=== PATIENT | male | born 1950 | race Caucasian/White ===

== ENCOUNTER → 2017-05-12 | Day surgery (SDC) | payer OTHER ==
[2017-05-11 09:45] LABS: BASOPHILS % 0.3 % (0.0-1.0); EOSINOPHILS # (AUTO) 0.1 (0.0-0.4); EOSINOPHILS % 0.8 % (0.0-6.0); HEMATOCRIT 41.1 % (38.2-49.6); HEMOGLOBIN 13.9 g/dL (14.0-18.0); LYMPHOCYTES # (AUTO) 2.2 (1.0-3.2); MEAN CORPUSCULAR HEMOGLOBIN 32.8 pg (28-32); MEAN CORPUSCULAR HGB CONC 33.8 g/dL (31-35); MEAN CORPUSCULAR VOLUME 96.9 fL (81-99); MONOCYTES # (AUTO) 0.8 (0.2-0.8); MONOCYTES % 8.2 % (4.4-11.3); NEUTROPHILS # (AUTO) 6.8 (2.1-6.9); NEUTROPHILS % 68.3 % (38.7-80.0); PLATELET COUNT 223 x10e3/uL (140-360); RED BLOOD COUNT 4.24 x10e6/uL (4.3-5.7); RED CELL DISTRIBUTION WIDTH 13.1 % (11.7-14.4)
--- NOTE | 2017-05-11 09:56 | Diagnostic Imaging Report ---
PROCEDURE: Frontal and lateral views of the chest. COMPARISON: None. INDICATIONS: PREOPERATIVE CHEST XRAY FOR KNEE SURGERY FINDINGS: Lines/tubes: None. Lungs: The lungs are well inflated and clear. There is no evidence of pneumonia or pulmonary edema. Pleura: There is no pleural effusion or pneumothorax. Heart and mediastinum: The heart and the mediastinum are normal. Bones: No acute bony abnormality. Degenerative changes of the thoracic spine. IMPRESSION: No acute radiographic abnormality. Dictated by: Michael Redding M.D. on 05/11/2017 at 9:56 Electronically approved by: Michael Redding M.D. on 05/11/2017 at 9:56
[2017-05-11 10:02] LABS: ANION GAP 12.7 mmol/L (8-16); BLOOD UREA NITROGEN 13 mg/dL (7-26); BUN/CREATININE RATIO 14 (6-25); CALCIUM 9.9 mg/dL (8.4-10.2); CARBON DIOXIDE 26 mmol/L (22-29); CHLORIDE 108 mmol/L (98-107); CREATININE, SERUM 0.92 mg/dL (0.72-1.25); EST GLOMERULAR FILTRATION RATE > 60 ML/MIN (60-); GLUCOSE 103 mg/dL (74-118); POTASSIUM 4.7 mmol/L (3.5-5.1); SODIUM 142 mmol/L (136-145)
[~2017-05-12] MED LIST: ACETAMINOPHEN 1000 MG/100 ML IV ONE; ATORVASTATIN CA80 MG PO; CILOSTAZOL100 MG PO; CLINDAMYCIN PHOS 900MG/ D5W 50 50 ML IV ONE; CLOPIDOGREL75 MG PO; DIPYRIDAMOLE25 MG; FENTANYL CITRATE/PF 100MCG/2 ML INJ ONE; GLIMEPIRIDE4 MG; LIDOCAINE 2% /EPINEPHRINE 20 ML SDV INJ ONE; LIDOCAINE HCL 2% LOCAL INJ 5 ML SDV VIAL INJ ONE; LISINOPRIL2.5 MG PO; METFORMIN HCL500 MG PO; METOPROLOL SUCC50 MG PO; MIDAZOLAM HCL 2 MG/2 ML VIAL ONE; ONDANSETRON HCL INJ 2 MG/ML VIAL ONE; PROPOFOL IV EMULSION 10 MG/ML 20 ML VIAL ONE; ROPIVACAINE 0.5% 5 MG/ML 30 ML SDV ONE; SEVOFLURANE INHAL SOLN 250 ML PEN BTL ONE
--- OUTSIDE RECORDS SUMMARY | 2017-05-12 06:44 | XMS REPORT | Clinical Summary ---
Author Author [facility] Organization [facility] Address Unknown Phone Unavailable Care Team Providers Care Player Services Representative Name Role Phone Cody Perry MD PCP Unavailable Allergies Active Allergy Reactions Severity Noted Date Comments Aspirin 04/25/2017 Cephalexin 04/25/2017 Penicillin Anaphylaxis High 04/25/2017 Sulfa (Sulfonamide 04/25/2017 Antibiotics) Current Medications Prescription Sig. Disp. Refills Start End Date Status Date atorvastatin (LIPITOR) 80 04/03/19 Active MG tablet 18 cilostazol (PLETAL) 50 MG 04/22/19 Active tablet 18 clopidogrel (PLAVIX) 75 04/18/19 Active mg tablet 18 hydroCHLOROthiazide 01/30/20 Active (HYDRODIURIL) 25 MG 17 tablet lisinopril 03/30/19 Active (PRINIVIL,ZESTRIL) 5 mg 18 tablet metFORMIN (GLUCOPHAGE) 04/02/19 Active 500 mg tablet 18 metoprolol succinate XL 04/18/19 Active (TOPROL-XL) 50 mg 24 hr 18 tablet glimepiride (AMARYL) 4 MG Take 4 mg by mouth daily Active tablet before breakfast. traMADol (ULTRAM) 50 mg Take 1 tablet (50 mg 15 tablet 0 04/26/19 tablet total) by mouth every 8 18 18 (eight) hours as needed for moderate pain or severe pain for up to 3 days. 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 Pulse 64 04/25/2017 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 Temperature 36.8 C (98.3 F) 04/25/2017 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 Respiratory Rate 18 04/25/2017 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 Oxygen Saturation 99% 04/25/2017 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 Inhaled Oxygen - - Concentration Weight 74.8 kg (165 lb) 04/25/2017 1:30 PM ORNAMENTAL PAINTER Height 175.3 cm (5' 9") 04/25/2017 1:30 PM ORNAMENTAL PAINTER Body Mass Index 24.37 04/25/2017 1:30 PM ORNAMENTAL PAINTER Plan of Treatment Health Maintenance Due Date Last Done Comments COLONOSCOPY 2002 ZOSTER VACCINE 2012 INFLUENZA VACCINE 09/23/2016 Results * XR Knee 4+ Vw Right (04/25/2017 2:04 PM) Specimen Performing Laboratory [facility] [address] [place] [address] Narrative EXAM:XR KNEE 4VW RIGHT HISTORY:BONE PAINKNEE COMPARISON:None available IMPRESSION: 1.An approximately 1 cm osseous fragment is noted cranial to the patella suggesting anavulsion fracture. Injury to the patellar tendon not excluded. Further evaluation with an MRI of the right knee may be of benefit in better characterization. 2. There is mild tricompartmental degenerative arthropathy as indicated by joint space narrowing and subchondral sclerosis. 3. There may be a small suprapatellar effusion. Prepatellar and suprapatellar soft tissue swelling is noted. [id number] Procedure Note Interface, Radiology Results Incoming - 04/25/2017 2:14 PM ORNAMENTAL PAINTER EXAM: XR KNEE 4 VW RIGHT HISTORY: BONE PAIN KNEE COMPARISON: None available IMPRESSION: 1. An approximately 1 cm osseous fragment is noted cranial to the patella suggesting an avulsion fracture. Injury to the patellar tendon not excluded. Further evaluation with an MRI of the right knee may be of benefit in better characterization. 2. There is mild tricompartmental degenerative arthropathy as indicated by joint space narrowing and subchondral sclerosis. 3. There may be a small suprapatellar effusion. Prepatellar and suprapatellar soft tissue swelling is noted. [facility]-[id number] after 05/11/2016 Insurance Payer Benefit Subscriber ID Type Phone Address Plan / Group CIG[employer] CIGNA OPEN xxxxxxxxxxx HMO ACCESS/NET WORK Home: [id number] [place] [id number]
--- OUTSIDE RECORDS SUMMARY | 2017-05-12 06:44 | XMS REPORT ---
[facility] Address Unknown Phone Unavailable Care Team Providers Care Curam Developer Name Role Phone MONIKA SEWELL Unavailable Unavailable Problems This patient has no known problems. Allergies, Adverse Reactions, Alerts This patient has no known allergies or adverse reactions. Medications This patient has no known medications. Results Test Description Test Time Test Comments Text Results Atomic Results Result Comments CHEST 2 VIEWS [place] [address] Patient Name: DWIGHT VIVEROS MR #: [id number] : 1950 Age/Sex: 66/M Req # : [id number] Adm Physician: Ordered by: ACOSTA BLAIR MD Report #: [id number] Location: OR Room/Bed: Procedure: [id number] DX/CHEST 2 VIEWS Exam Date: 05/11/17 Exam Time: 0945 REPORT STATUS: Signed PROCEDURE: Frontal and lateral views of the chest. COMPARISON: None. INDICATIONS: PREOPERATIVE CHEST XRAY FOR KNEE SURGERY FINDINGS: Lines/tubes: None. Lungs: The lungs are well inflated and clear. There is no evidence of pneumonia or pulmonary edema. Pleura: There is no pleural effusion or pneumothorax. Heart and mediastinum: The heart and the mediastinum are normal. Bones: No acute bony abnormality. Degenerative changes of the thoracic spine. IMPRESSION: No acute radiographic abnormality. Dictated by: Deepti Gunderson M.D. on 05/11/2017 at 9:56 Electronically approved by: Deepti Gunderson M.D. on 05/11/2017 at 9:56 Dictated By : DEEPTI GUNDERSON MD 5 Transcribed By: EDITH on 05/11/17955 COPY TO: ACOSTA BLAIR MD
--- NOTE | 2017-05-12 11:40 | Operative Report ---
DATE OF PROCEDURE: May 12, 2017 COMPENSATION AND BENEFITS ADVISOR: Ermias Bui PA-C The patient was brought to the operating room for induction of anesthesia. Throughout this case, my PA's assistance was necessary for retraction of soft tissue and positioning of the extremity. This allows for efficient and technically successful execution of the operation and is considered medically necessary. PREOPERATIVE DIAGNOSIS: Right quadriceps tendon rupture. POSTOPERATIVE DIAGNOSIS: Right quadriceps tendon rupture. PROCEDURE: Repair of right quadriceps tendon. INDICATIONS: The patient is a 66-year-old gentleman who sustained an acute rupture of his right quadriceps tendon. The findings and options have been discussed with the patient. We plan on a primary repair. The risks and benefits of the procedure were explained. The recovery was discussed. He stated he understood and wished to proceed. DESCRIPTION OF PROCEDURE: The patient was brought to the operating room and placed under general anesthetic. He received prophylactic antibiotics in the holding area. His right lower extremity was prepped and draped in a sterile manner. Extremity was exsanguinated, and a proximal tourniquet was inflated to 300 mmHg. An anterior incision was made over the right knee. A blood-tinged seroma was encountered. Complete rupture of the quadriceps tendon was identified. The remaining soft-tissue attachments at the superior pole of the patella were debrided. A trough of bleeding cancellous bone was created with a rongeur and a curet. The proximal portion of the tendon was debrided back to more healthy tissue. Drill holes were placed in a vertical fashion in the patella. A #2 FiberWire stitch was then woven in a Rockledge-type weave into the tendon. A Hewson suture passer was used to pass the #2 Ethibond through the patellar bone down to the inferior pole of the patella. There were 3 drill holes and 4 sutures passed. These were secured over the inferior pole of the patella. The knee was put through gentle range of motion. There was good opposition of the tendon with flexion and extension. A 2-0 Ethibond was used to oversew some of the soft tissue and a rent in the medial retinaculum. The wound was irrigated and closed with subcuticular Vicryl and maverick. A sterile bandage and a knee immobilizer were applied. The patient was extubated and transported to the recovery room in stable condition. Blood loss was less than 10 mL, and all needle and sponge counts were correct. Job#: [id number]
== END | disposition home or self-care (01) ==
LOC: OR 06:42
PROVIDERS: ATTEND Specialist
DX: S76.191A Other specified injury of right quadriceps muscle, fascia and tendon, initial encounter (principal); S80.01XA Contusion of right knee, initial encounter; I25.10 Atherosclerotic heart disease of native coronary artery without angina pectoris; I10 Essential (primary) hypertension; E11.9 Type 2 diabetes mellitus without complications; Z88.6 Allergy status to analgesic agent; Z88.0 Allergy status to penicillin; F17.210 Nicotine dependence, cigarettes, uncomplicated; Z88.2 Allergy status to sulfonamides; W01.0XXA Fall on same level from slipping, tripping and stumbling without subsequent striking against object, initial encounter; Y92.009 Unspecified place in unspecified non-institutional (private) residence as the place of occurrence of the external cause; Z01.810 Encounter for preprocedural cardiovascular examination; Z01.812 Encounter for preprocedural laboratory examination; Z01.818 Encounter for other preprocedural examination; Z79.02 Long term (current) use of antithrombotics/antiplatelets; Z95.5 Presence of coronary angioplasty implant and graft
CPT/HCPCS: 27385; 36415 ×2; 71046; 80048; 82948; 85025; 93005; J2001 ×2; J2250; J2405; J2795

== ENCOUNTER → 2017-07-23 | Outpatient (RCR) | payer OTHER ==
[~2017-07-23] MED LIST changes: -ACETAMINOPHEN 1000 MG/100 ML IV ONE; -CLINDAMYCIN PHOS 900MG/ D5W 50 50 ML IV ONE; -FENTANYL CITRATE/PF 100MCG/2 ML INJ ONE; -LIDOCAINE 2% /EPINEPHRINE 20 ML SDV INJ ONE; -LIDOCAINE HCL 2% LOCAL INJ 5 ML SDV VIAL INJ ONE; -MIDAZOLAM HCL 2 MG/2 ML VIAL ONE; -ONDANSETRON HCL INJ 2 MG/ML VIAL ONE; -PROPOFOL IV EMULSION 10 MG/ML 20 ML VIAL ONE; -ROPIVACAINE 0.5% 5 MG/ML 30 ML SDV ONE; -SEVOFLURANE INHAL SOLN 250 ML PEN BTL ONE
== END ==
LOC: PT 06-30 13:47
PROVIDERS: ATTEND Specialist
DX: S76.191D Other specified injury of right quadriceps muscle, fascia and tendon, subsequent encounter (principal); M25.561 Pain in right knee; M25.661 Stiffness of right knee, not elsewhere classified; R26.2 Difficulty in walking, not elsewhere classified

== ENCOUNTER 2017-08-14 13:52 | Outpatient (RCR) | payer OTHER | END 2017-08-22 | LOC: PT 13:52 | PROVIDERS: ATTEND Specialist | DX: S76.191D Other specified injury of right quadriceps muscle, fascia and tendon, subsequent encounter (principal); M25.561 Pain in right knee; M25.661 Stiffness of right knee, not elsewhere classified; R26.2 Difficulty in walking, not elsewhere classified; M62.81 Muscle weakness (generalized) | CPT/HCPCS: 97139 ==

== ENCOUNTER → 2021-04-23 | Day surgery (SDC) | payer MEDICARE, OTHER ==
[~2021-04-23] MED LIST changes: +BACITRACIN ZINC 15 GM OINT ONE; +BUPIVACAINE HCL 0.5% INJ 30 ML VIAL INJ ONE; +EPHEDRINE SULFATE INJ 50 MG/ML VIAL ONE; +FENTANYL CITRATE/PF 100MCG/2 ML INJ ONE; +HYDROCODON-ACE1 EA12 PO; +KETOROLAC TROMETHAMINE 30 MG/ML VIAL ONE; +LIDOCAINE HCL 2% LOCAL INJ 5 ML SDV VIAL INJ ONE; +MIDAZOLAM HCL 2 MG/2 ML VIAL ONE; +MUPIROCIN 2% OINT 22 GM TUBE ONE; +ONDANSETRON HCL INJ 2MG/ML 2ML 2 MG/ML VIAL ONE; +POVIDONE IODINE 0.05% 0.05 % ML PO ONE; +PROPOFOL IV EMULSION 10 MG/ML 20 ML VIAL ONE; +SEVOFLURANE INHAL SOLN 250 ML PEN BTL ONE
[2021-04-23 09:29] VITALS: BP 152/61
== END | disposition home or self-care (01) ==
LOC: OR 05:34
PROVIDERS: ATTEND Plastic Surgery
DX: M72.0 Palmar fascial fibromatosis [Dupuytren] (principal); E11.9 Type 2 diabetes mellitus without complications; I25.10 Atherosclerotic heart disease of native coronary artery without angina pectoris; I25.2 Old myocardial infarction; I10 Essential (primary) hypertension; F17.210 Nicotine dependence, cigarettes, uncomplicated; Z88.6 Allergy status to analgesic agent; Z88.1 Allergy status to other antibiotic agents; Z88.0 Allergy status to penicillin; Z88.2 Allergy status to sulfonamides; Z01.810 Encounter for preprocedural cardiovascular examination; Z01.812 Encounter for preprocedural laboratory examination; Z01.818 Encounter for other preprocedural examination; Z20.822 Contact with and (suspected) exposure to COVID-19; Z79.02 Long term (current) use of antithrombotics/antiplatelets; Z79.84 Long term (current) use of oral hypoglycemic drugs; Z79.899 Other long term (current) drug therapy; Z95.5 Presence of coronary angioplasty implant and graft
CPT/HCPCS: 26123; 26125; 36415; 71046; 82948; 88304; 93005; J1885; J2001; J2250; J2405; J2704; J3010; U0002